=== PATIENT | male | born 1950 | race Caucasian/White ===

== ENCOUNTER 2017-01-03 09:15 | Inpatient (IN) | payer OTHER ==
[2017-01-31] MEDS ORDERED: ASPIRIN81 MG PO (08:31)
[2017-01-31] MEDS ORDERED: LIPITOR10 M1 PO ×2 (08:31→08:33)
[2017-01-31] MEDS ORDERED: BACLOFEN10 MG PO (08:32)
[2017-01-31] MEDS ORDERED: CIPROFLOXACN500 MG PO (08:33)
[2017-01-31] MEDS ORDERED: DIPHENHYDRAM25 MG PO (08:33)
[2017-01-31] MEDS ORDERED: OMEGA 31000 MG PO (08:34)
[2017-01-31] MEDS ORDERED: LISINOPRIL5 MG PO (08:34)
[2017-01-31] MEDS ORDERED: OMEPRAZOLE20 MG PO (08:34)
[2017-01-31] MEDS ORDERED: INDERAL10 M1 PO (08:35)
[2017-01-31] MEDS ORDERED: LIQUITEARS OU (08:36)
[2017-01-31] MEDS ORDERED: TESSALON PER100 MG PO (08:36)
[2017-01-31] MEDS ORDERED: NAPROSYN250 MG PO (08:37)
== END 2017-01-31 09:00 | disposition designated cancer center or children's hospital (05) | DRG 563 ==
LOC: EDBD 01-31 08:15 → MS2 01-31 08:17
PROVIDERS: ADMIT Orthopaedic Surgery; ATTEND Orthopaedic Surgery
DX: S46.011A Strain of muscle(s) and tendon(s) of the rotator cuff of right shoulder, initial encounter (principal); M19.011 Primary osteoarthritis, right shoulder; I71.9 Aortic aneurysm of unspecified site, without rupture; J06.9 Acute upper respiratory infection, unspecified; Z53.09 Procedure and treatment not carried out because of other contraindication; W18.30XA Fall on same level, unspecified, initial encounter

== ENCOUNTER 2017-04-04 06:54 | Inpatient (IN) | payer OTHER ==
[2017-04-04] VITALS (8 sets, daily range): BP systolic 112–133; BP diastolic 62–86
[~2017-04-04] VITALS: Ht 182.9 cm; Wt 104.3 kg
[~2017-04-04 06:54] MED LIST: ASPIRIN81 MG PO; BACLOFEN10 MG PO; CIPROFLOXACN500 MG PO; DIPHENHYDRAM25 MG PO; INDERAL10 M1 PO; LIPITOR10 M1 PO; LIQUITEARS OU; LISINOPRIL5 MG PO; NAPROSYN250 MG PO; OMEGA 31000 MG PO; OMEPRAZOLE20 MG PO; TESSALON PER100 MG PO
[2017-04-04 07:34] LABS: HEMATOCRIT 40.4 % (39.0-50.0); HEMOGLOBIN 14.5 g/dl (14.0-18.0); IMMATURE GRANULOCYTES 0.2 % (0.0-1.0); MEAN CELL VOLUME 88.4 fL CALC (80.0-100.0); MEAN CORPUSCULAR HGB 31.7 pG CALC (26.0-32.0); MEAN CORPUSCULAR HGB CONC 35.9 g/L CALC (32.0-36.0); NEUT# 3.48 thou/uL (1.82-7.42); RED BLOOD COUNT 4.57 mill/uL (4.70-6.10); RED CELL DISTRI WIDTH 12.7 % (11.5-15.5)
[2017-04-04 07:46] LABS: ANION GAP 15 (6-22 (CALC)); BUN 21 mg/dL (8-23); BUN/CREATININE RATIO 26 (12-20 (CALC)); CALCIUM 9.8 mg/dL (8.4-10.2); CARBON DIOXIDE 24 mmol/l (22-30); CHLORIDE 109 mmol/l (95-108); CREATININE 0.8 mg/dL (0.7-1.3); GFR > 60 ML/MIN (>=60 (CALC)); GFR FOR AFR.AMER. > 60 ML/MIN (>=60 (CALC)); GLUCOSE 120 mg/dL (82-115); POTASSIUM 4.2 mmol/l (3.5-5.1); SODIUM 144 mmol/l (137-146)
[2017-04-04 07:50] LABS: ACT PARTIAL THROMBO TIME 24.8 SECONDS (20.0-32.5); PROTHROMBIN TIME 10.8 SECONDS (9.0-12.5)
[2017-04-05 00:20] VITALS: BP 114/72
[2017-04-05 04:20] VITALS: BP 119/70
[2017-04-05 08:18] VITALS: BP 131/78
[2017-04-05 09:08] VITALS: BP 131/78
[2017-04-05 09:56] LABS: HEMATOCRIT 36.5 % (39.0-50.0)
[2017-04-05] MEDS ORDERED: PERCOCET 10/31 COMBO PO (11:32)
== END 2017-04-05 13:12 | disposition designated cancer center or children's hospital (05) | DRG 483 ==
LOC: MS2 06:54
PROVIDERS: Internal Medicine; ADMIT Orthopaedic Surgery; ATTEND Orthopaedic Surgery
PROC: 0RRJ00Z Replacement of Right Shoulder Joint with Reverse Ball and Socket Synthetic Substitute, Open Approach (ICD-10-PCS; principal; 2017-04-04)
PROC: 0LS30ZZ Reposition Right Upper Arm Tendon, Open Approach (ICD-10-PCS; 2017-04-04)
DX: M19.011 Primary osteoarthritis, right shoulder (principal); I10 Essential (primary) hypertension; I71.4 Abdominal aortic aneurysm, without rupture; M75.31 Calcific tendinitis of right shoulder; M75.111 Incomplete rotator cuff tear or rupture of right shoulder, not specified as traumatic; S46.211A Strain of muscle, fascia and tendon of other parts of biceps, right arm, initial encounter; X58.XXXA Exposure to other specified factors, initial encounter
CPT/HCPCS: J1100; J2710

== ENCOUNTER 2017-08-04 10:11 | Day surgery (SDC) | payer OTHER ==
[~2017-08-04] VITALS: Ht 182.9 cm; Wt 100.7 kg
[~2017-08-04 10:11] MED LIST changes: +PERCOCET 10/31 COMBO PO
[2017-08-04] MEDS ORDERED: BACTRIM DS1 TAB PO (10:30)
[2017-08-04 11:45] LABS: HEMATOCRIT 36.9 % (39.0-50.0); HEMOGLOBIN 12.7 g/dl (14.0-18.0); IMMATURE GRANULOCYTES 0.5 % (0.0-1.0); MEAN CELL VOLUME 87.4 fL CALC (80.0-100.0); MEAN CORPUSCULAR HGB 30.1 pG CALC (26.0-32.0); MEAN CORPUSCULAR HGB CONC 34.4 g/L CALC (32.0-36.0); NEUT# 3.99 thou/uL (1.82-7.42); RED BLOOD COUNT 4.22 mill/uL (4.70-6.10); RED CELL DISTRI WIDTH 13.2 % (11.5-15.5)
[2017-08-04 12:05] LABS: ALBUMIN 3.7 g/dL (3.2-5.0); ALKALINE PHOSPHATASE 92 u/l (38-126); ANION GAP 15 (6-22 (CALC)); BILIRUBIN, TOTAL 0.6 mg/dL (0.0-1.4); BUN 20 mg/dL (8-23); BUN/CREATININE RATIO 23 (12-20 (CALC)); CARBON DIOXIDE 26 mmol/l (22-30); CHLORIDE 105 mmol/l (95-108); CREATININE 0.9 mg/dL (0.7-1.3); GFR > 60 ML/MIN (>=60 (CALC)); GFR FOR AFR.AMER. > 60 ML/MIN (>=60 (CALC)); POTASSIUM 4.2 mmol/l (3.5-5.1); SGOT/AST 21 u/l (19-48); SGPT/ALT 32 u/l (11-66); SODIUM 141 mmol/l (137-146); TOTAL PROTEIN 6.5 g/dL (6.3-8.2)
[2017-08-04] MEDS ORDERED: CLINDAMYCIN HC150 MG PO (16:28)
[2017-08-04] MEDS ORDERED: PERCOCET 10/31 COMBO PO (16:28)
[2017-08-04 16:57] VITALS: BP 118/74
== END 2017-08-04 17:20 | disposition home or self-care (01) | DRG 858 ==
LOC: ORM 10:11
PROVIDERS: ATTEND Orthopaedic Surgery
PROC: 0J9D0ZZ Drainage of Right Upper Arm Subcutaneous Tissue and Fascia, Open Approach (ICD-10-PCS; principal; 2017-08-04)
DX: T81.4XXA Infection following a procedure, initial encounter (principal); Y83.1 Surgical operation with implant of artificial internal device as the cause of abnormal reaction of the patient, or of later complication, without mention of misadventure at the time of the procedure; Z96.611 Presence of right artificial shoulder joint